=== PATIENT | male | born 1980 | race Hispanic/Latino ===

== ENCOUNTER 2017-12-25 11:40 | Emergency (ER) | payer MEDICARE, OTHER ==
[~2017-12-25] VITALS: Ht 175.3 cm; Wt 81.6 kg
[~2017-12-25 11:40] MED LIST: CRESTOR5 MG PO; ECOTRIN325 MG PO; JANUVIA100 MG PO; METFORMIN HCL500 MG PO; PEPCID40 MG PO; ULTRAM50 MG PO; VASOTEC5 MG PO
[2017-12-25] MEDS ORDERED: HYDROCODONE/APAP 5MG-325MG TAB PO ONE (12:15)
--- NOTE | 2017-12-25 12:26 | Diagnostic Imaging Report ---
Exam: Left ankle, 2 views, left foot, 2 views History: Fall, ankle pain Comparison: None. Findings: Ankle: No acute, displaced fracture or dislocation. The ankle mortise is maintained. Tibial plafond and talar dome are intact. Soft tissues are unremarkable. Foot: Acute, comminuted transverse intra-articular fracture of the base of the first metatarsal. Acute, minimally displaced transverse fractures of the proximal second and third metatarsals, without definite intra-articular extension. Acute nondisplaced oblique fracture of the base of the fourth metatarsal with intra-articular extension. Appropriate alignment between the medial cuneiform and second metatarsal base in keeping with an intact Lisfranc ligament. Remaining osseous structures are intact. Diffuse soft tissue swelling of the midfoot. Impression: Acute, comminuted intra-articular fracture of the first metatarsal base. Minimally displaced fractures of the second through fourth metatarsal bases, with hairline intra-articular extension of the fourth metatarsal fracture. No findings to suggest Lisfranc ligamentous disruption. Signed by: Dr. Jose Frances M.D. on 12/25/2017 12:22 PM
[2017-12-25 13:34] VITALS: BP 100/70
== END 2017-12-25 12:35 | disposition home or self-care (01) ==
LOC: FSED 11:40
DX: S92.315A Nondisplaced fracture of first metatarsal bone, left foot, initial encounter for closed fracture (principal); S92.325A Nondisplaced fracture of second metatarsal bone, left foot, initial encounter for closed fracture; S92.335A Nondisplaced fracture of third metatarsal bone, left foot, initial encounter for closed fracture; S90.112A Contusion of left great toe without damage to nail, initial encounter; S90.122A Contusion of left lesser toe(s) without damage to nail, initial encounter; W18.39XA Other fall on same level, initial encounter; X50.1XXA Overexertion from prolonged static or awkward postures, initial encounter; Y92.008 Other place in unspecified non-institutional (private) residence as the place of occurrence of the external cause
CPT/HCPCS: 99284

== ENCOUNTER 2019-05-24 09:17 | Inpatient (IN) | payer MEDICARE ==
[~2019-05-24] VITALS: Ht 175.3 cm; Wt 84.0 kg
[2019-05-24] MEDS ORDERED: SODIUM CHLORIDE 0.9% 1000ML 1,000 ML IV STA ×2 (09:38→09:43)
[2019-05-24 10:15] LABS: BASOPHILS % 0.1 % (0.0-1.0); EOSINOPHILS % 0.3 % (0.0-6.0); HEMATOCRIT 42.3 % (38.2-49.6); HEMOGLOBIN 13.6 g/dL (14.0-18.0); LYMPHOCYTES % 14.7 % (18.0-39.1); MEAN CORPUSCULAR HEMOGLOBIN 29.7 pg (28-32); MEAN CORPUSCULAR HGB CONC 32.2 g/dL (31-35); MEAN CORPUSCULAR VOLUME 92.4 fL (81-99); MONOCYTES % 7.6 % (4.4-11.3); NEUTROPHILS # (AUTO) 10.6 (2.1-6.9); NEUTROPHILS % 76.9 % (38.7-80.0); PLATELET COUNT 266 x10e3/uL (140-360); RED BLOOD COUNT 4.58 x10e6/uL (4.3-5.7); RED CELL DISTRIBUTION WIDTH 12.5 % (11.7-14.4)
[2019-05-24 10:29] LABS: STREPTOCOCCUS GRP A ANTIGEN NEGATIVE (NEGATIVE)
[2019-05-24 10:35] LABS: INFLUENZAE A&B ANTIGEN (RAPID) NEGATIVE (NEGATIVE)
[2019-05-24 10:37] LABS: ALBUMIN/GLOBULIN RATIO 0.7 (0.8-2.0); ANION GAP 12.8 mmol/L (8-16); CALCIUM 9.6 mg/dL (8.4-10.2); CREATININE, SERUM 1.73 mg/dL (0.72-1.25); MAGNESIUM 1.9 MG/DL (1.3-2.1); POTASSIUM 3.8 mmol/L (3.5-5.1)
--- NOTE | 2019-05-24 10:38 | Diagnostic Imaging Report ---
Chest, 1 view, 05/24/2019. History: Cough and fever. Comparison: None available. Findings: The cardiomediastinal silhouette and pulmonary vasculature are within normal limits for a portable exam. There is no focal consolidation or pleural effusion. Linear opacities are present at the lung bases. There are no acute osseous or soft tissue abnormalities. Impression: Bibasilar atelectasis. Signed by: Cuauhtemoc Bullock on 05/24/2019 10:35 AM
[2019-05-24 10:39] LABS: INR 1.01; PROTHROMBIN TIME 13.9 seconds (11.9-14.5)
[2019-05-24 10:40] LABS: PARTIAL THROMBOPLASTIN TIME 26.2 seconds (23.8-35.5)
[2019-05-24] MEDS: CEFEPIME 2 GM/NS 0.9% 100 ML 100 ML IV SCH ×2 (10:57→22:46)
[2019-05-24] MEDS ORDERED: VANCOMYCIN 1GM/NS 250 ML 250 ML IV ONE (11:00)
[2019-05-24 11:30] LABS: CREATINE KINASE MB 1.3 ng/mL (0-5.0)
[2019-05-24] MEDS ORDERED: SODIUM CHLORIDE 0.9% 500ML 500 ML IV ONE (11:30)
[2019-05-24 11:32] LABS: B-TYPE NATRIURETIC PEPTIDE2 110.1 pg/mL (0-100)
--- NOTE | 2019-05-24 11:35 | Diagnostic Imaging Report ---
History: Fever, low blood pressure, headache Comparison studies: None Technique: Axial images were obtained from the skull base to the vertex. Coronal and sagittal reconstructions obtained from the axial data. Dose modulation, iterative reconstruction, and/or weight based adjustment of the mA/kV was utilized to reduce the radiation dose to as low as reasonably achievable. Findings: Scalp/skull: No abnormalities. No fractures, blastic or lytic lesions. Extra-axial spaces: No masses. No fluid collections. Brain sulci: Mildly prominent, more than expected for patient's patient age. Ventricles: Mildly prominent. No hydrocephalus. Parenchyma: No abnormal densities. No masses, hemorrhage, acute or chronic cortical vascular insults. Sellar/suprasellar region: No abnormalities Craniocervical junction: Patent foramen magnum. No Chiari one malformation. IMPRESSION: No acute abnormalities . Mld diffuse volume loss, more than expected for patient's age Signed by: DR Johnson Nazario M.D. on 05/24/2019 11:32 AM
[2019-05-24] MEDS: AZITHROMYCIN 500MG/NS 250 ML 250 ML IV SCH (12:15)
[2019-05-24] MEDS ORDERED: DEXTROSE 50% SYRINGE 50 ML IV PRN (13:00)
[2019-05-24] MEDS ORDERED: ALBUTEROL SULF 0.083% NEB SOLN 3 ML NEB NEB PRN (13:00)
--- OUTSIDE RECORDS SUMMARY | 2019-05-24 13:34 | XMS REPORT ---
Author Author [facility] Address Unknown Phone Unavailable Care Team Providers Care Criminal Defense Lawyer Name Role Phone Julissa ENGEL Unavailable Unavailable Jaxson VEE Unavailable Unavailable Problems This patient has no known problems. Allergies, Adverse Reactions, Alerts This patient has no known allergies or adverse reactions. Medications This patient has no known medications. Results Test Description Test Time Test Comments Text Results Atomic Results Result Comments CT BRAIN WO 2019-05-24 11:22:00 [place] [address] Patient Name: MARGARITO ALFONSO MR #: [id number] : 1980 Age/Sex: 39/M Req #: [id number] Adm Physician: Ordered by: BALBIR CAROLINA SOAP DRIER OPERATOR Report #: [id number] Location: ER Room/Bed: Procedure: [id number] CT/CT BRAIN WO Exam Date: 05/24/19 Exam Time: 1030 REPORT STATUS: Signed History: Fever, low blood pressure, headache Comparison studies: None Technique: Axial images were obtained from the skull base to the vertex. Coronal and sagittal reconstructions obtained from the axial data. Dose modulation, iterative reconstruction, and/or weight based adjustment of the mA/kV was utilized to reduce the radiation dose to as low as reasonably achievable. Findings: Scalp/skull: No abnormalities. No fractures, blastic or lytic lesions. Extra-axial spaces: No masses. No fluid collections. Brain sulci: Mildly prominent, more than expected for patient's patient age. Ventricles: Mildly prominent. No hydrocephalus. Parenchyma: No abnormal densities. No masses, hemorrhage, acute or chronic cortical vascular insults. Sellar/suprasellar region: No abnormalities Craniocervical junction: Patent foramen magnum. No Chiari one malformation. IMPRESSION: No acute abnormalities . Mld diffuse volume loss, more than expected for patient's age Signed by: DR Johnson Nazario M.D. on 05/24/2019 11:32 AM Dictated By: JOHNSON SPRING MD 113 Transcribed By: SHEMAR on 05/24/19 113 COPY TO: BALBIR CAROLINA NP CHEST SINGLE (PORTABLE) 2019-05-24 10:35:00 [place] [address] Patient Name: MARGARITO ALFONSO MR #: [id number] : 1980 Age/Sex: 39/M Req #: [id number] Adm Physician: Ordered by: ROXANE ENGEL MD Report #: [id number] Location: ER Room/Bed: Procedure: [id number] DX/CHEST SINGLE (PORTABLE) Exam Date: Exam Time: REPORT STATUS: Signed Chest, 1 view, 05/24/2019. History: Cough and fever. Comparison: None available. Findings: The cardiomediastinal silhouette and pulmonary vasculature are within normal limits for a portable exam. There is no focal consolidation or pleural effusion. Linear opacities are present at the lung bases. There are no acute osseous or soft tissue abnormalities. Impression: Bibasilar atelectasis. Signed by: Balbir Bullock on 05/24/2019 10:35 AM Dictated By: BALBIR BULLOCK MD 1035 Transcribed By: SHEMAR on 05/24/19 1035 COPY TO: ROXANE ENGEL MD FOOT 3 VIEW LT - [facility] 2017-12-25 12:18:00 [place] [address] Patient Name: MARGARITO ALFONSO MR #: [id number] : 1980 Age/Sex: 37/M Req #: [id number] Adm Physician: Ordered by: ERNESTO VEE MD Report #: [id number] Location: [facility] Room/Bed: Procedure: [id number] [facility]/FOOT 3 VIEW - [facility] Exam Date: 12/25/17 Exam Time: 1150 REPORT STATUS: Signed Exam: Left ankle, 2 views, left foot, 2 views History: Fall, ankle pain Comparison: None. Findings: Ankle: No acute, displaced fracture or dislocation. The ankle mortise is maintained. Tibial plafond and talar dome are intact. Soft tissues are unremarkable. Foot: Acute, comminuted transverse intra-articular fracture of the base of the first metatarsal. Acute, minimally displaced transverse fractures of the proximal second and third metatarsals, without definite intra-articular extension. Acute nondisplaced oblique fracture of the base of the fourth metatarsal with intra-articular extension. Appropriate alignment between the medial cuneiform and second metatarsal base in keeping with an intact Lisfranc ligament. Remaining osseous structures are intact. Diffuse soft tissue swelling of the midfoot. Impression: Acute, comminuted intra-articular fracture of the first metatarsal base. Minimally displaced fractures of the second through fourth metatarsal bases, with hairline intra-articular extension of the fourth metatarsal fracture. No findings to suggest Lisfranc ligamentous disruption. Signed by: Dr. Thiago Bee M.D. on 12/25/2017 12:22 PM Dictated By: THIAGO BEE MD 1222 Transcribed By: SHEMAR on 12/25/17 1222 COPY TO: ERNESTO VEE MD ANKLE 3VIEW LT - [facility] 2017-12-25 12:18:00 [place] [address] Patient Name: MARGARITO ALFONSO MR #: [id number] : 1980 Age/Sex: 37/M Req #: [id number] Adm Physician: Ordered by: ERNESTO VEE MD Report #: [id number] Location: [facility] Room/Bed: Procedure: [id number] HOPD/ANKLE 3VIEW LT - [facility] Exam Date: 12/25/17 Exam Time: 1150 REPORT STATUS: Signed Exam: Left ankle, 2 views, left foot, 2 views History: Fall, ankle pain Comparison: None. Findings: Ankle: No acute, displaced fracture or dislocation. The ankle mortise is maintained. Tibial plafond and talar dome are intact. Soft tissues are unremarkable. Foot: Acute, comminuted transverse intra-articular fracture of the base of the first metatarsal. Acute, minimally displaced transverse fractures of the proximal second and third metatarsals, without definite intra-articular extension. Acute nondisplaced oblique fracture of the base of the fourth metatarsal with intra-articular extension. Appropriate alignment between the medial cuneiform and second metatarsal base in keeping with an intact Lisfranc ligament. Remaining osseous structures are intact. Diffuse soft tissue swelling of the midfoot. Impression: Acute, comminuted intra-articular fracture of the first metatarsal base. Minimally displaced fractures of the second through fourth metatarsal bases, with hairline intra-articular extension of the fourth metatarsal fracture. No findings to suggest Lisfranc ligamentous disruption. Signed by: Dr. Thiago Bee M.D. on 12/25/2017 12:22 PM Dictated By: THIAGO BEE MD 21 Transcribed By: SHEMAR on 12/25/171221 COPY TO: ERNESTO VEE MD
[2019-05-24 13:39] LABS: CLARITY,URINE CLEAR (CLEAR); COLOR,URINE YELLOW (YELLOW)
[2019-05-24 13:40] LABS: BILIRUBIN,URINE NEGATIVE (NEGATIVE); KETONES,URINE TRACE (NEGATIVE); LEUKOCYTE ESTERASE ,URINE NEGATIVE (NEGATIVE); NITRITE,URINE NEGATIVE (NEGATIVE); PROTEIN,URINE DIPSTICK NEGATIVE (NEGATIVE); URINE UROBILINOGEN 0.2 mg/dL (0.2 - 1)
[2019-05-24 13:48] LABS: EPITHELIAL CELLS,URINE FEW /LPF
[2019-05-24] MEDS: SODIUM CHLORIDE 0.9% 1000ML 1,000 ML IV SCH (14:14)
--- NOTE | 2019-05-24 14:56 | NUR ---
H&P cc: dizziness and cough/congestion HPI: 39yoM, PCP , developed cough and congestion with dizziness, went to PCP, treated and sent home, 2 days later symptoms persist, then drop in BP, sent to ER for mgmt; No fever; But coughing has increased. No travel in past 30 days, no travel this year outside of [place]. PMH: chronic cholecystitis, GERD, CAD, myotonic dystrophy, HLD, DM2, Myotonic dystrophy PHSx: [facility]ergies; see emr Fh/SH; single; no cigs meds; see MAR ROS: unobtainable v/s revd PE tired appearing anicteric ns1s2 coarse breath sounds; coughing with deep inspiration soft nt nd no e/t skin dry flat affect awake labs/meds revd A/P: Sepsis- IV abx Acute bronchitis- obtain respiratory viral panel COSTA due to ATN- IVF Myotonic dystrophy- PT consult; DM2- hba1c/lipids HLD- statin Prop: scd; lovenox Dispo: f/u studies Raman Biggs MD, PhD.
[2019-05-24 15:35] VITALS: BP 114/82
--- NOTE | 2019-05-24 15:35 | NUR ---
PATIENT RECEIVED FROM ER PER STRETCHER. ALERT AND ORIENTED X 3. ASSISTED TO THE RESTROOM AND BACK TO BED. SKIN WARM AND DRY TO TOUCH, RESPIRATION EVEN AND UNLABORED, ABDOMEN SOFT, LARGE, AND NON TENDED. TELEMETRY B[address] ORIENTED TO SURROUNDING. BED IN LOWER POSITION, CALL LIGHT AT REACH. INSTRUCTED TO CALL FOR ASSISTANCE NEEDED.
[2019-05-24 16:00] VITALS: BP 114/82
[2019-05-24 16:10] LABS: CHOL/HDL RATIO 3.6 (3.9-4.7)
[2019-05-24] MEDS: INSULIN LISPRO 100 UNIT/1 ML 3ML VIAL SQ SCH ×2 (16:30→21:40)
[2019-05-24 17:28] LABS: CREATINE KINASE MB 1.8 ng/mL (0-5.0)
--- NOTE | 2019-05-24 19:00 | NUR ---
RECEIVED PATIENT IN BEDSIDE SHIFT REPORT. PATIENT RESTING IN BED AT THIS TIME. NO PAIN OR COUGHING NOTED AT THIS TIME. NO S&S OF DISTRESS NOTED. L AV 18G ASYMPTOMATIC, INTACT, AND PATENT, RUNNING NS @ 125 ML/HR. FAMILY MEMBERS AT BEDSIDE. BED LOCKED IN LOWEST POSITION, SIDE RAILS UPX2, CALL LIGHT IN REACH.
[2019-05-24 20:23] VITALS: BP 106/72
[2019-05-24 20:30] VITALS: BP 106/72
[2019-05-24] MEDS: GUAIFENESIN/DEXTROMETHORPHAN LIQD 5 ML UDC PO SCH (21:39)
[2019-05-25] VITALS (8 sets, daily range): BP systolic 104–116; BP diastolic 62–77
[2019-05-25] MEDS: SODIUM CHLORIDE 0.9% 1000ML 1,000 ML IV SCH ×3 (01:19→20:46)
[2019-05-25] MEDS: GUAIFENESIN/DEXTROMETHORPHAN LIQD 5 ML UDC PO SCH ×3 (06:12→22:46)
--- NOTE | 2019-05-25 07:25 | NUR ---
PATIENT IN BED RESTING WITH EYES CLOSED, NO DISTRESS NOTED. CALL LIGHT AT REACH.
[2019-05-25] MEDS: INSULIN LISPRO 100 UNIT/1 ML 3ML VIAL SQ SCH ×4 (07:30→21:00)
[2019-05-25 07:43] LABS: BASOPHILS % 0.4 % (0.0-1.0); EOSINOPHILS # (AUTO) 0.1 (0.0-0.4); EOSINOPHILS % 1.7 % (0.0-6.0); HEMATOCRIT 37.7 % (38.2-49.6); HEMOGLOBIN 11.9 g/dL (14.0-18.0); LYMPHOCYTES # (AUTO) 1.7 (1.0-3.2); LYMPHOCYTES % 24.2 % (18.0-39.1); MEAN CORPUSCULAR HEMOGLOBIN 29.2 pg (28-32); MEAN CORPUSCULAR HGB CONC 31.6 g/dL (31-35); MEAN CORPUSCULAR VOLUME 92.4 fL (81-99); MONOCYTES # (AUTO) 0.5 (0.2-0.8); NEUTROPHILS # (AUTO) 4.8 (2.1-6.9); NEUTROPHILS % 66.3 % (38.7-80.0); PLATELET COUNT 207 x10e3/uL (140-360); RED BLOOD COUNT 4.08 x10e6/uL (4.3-5.7); RED CELL DISTRIBUTION WIDTH 12.4 % (11.7-14.4)
[2019-05-25] MEDS: FAMOTIDINE 20 MG TAB PO SCH ×2 (08:00→17:08)
[2019-05-25 08:02] LABS: ALANINE AMINOTRANSFERASE 12 IU/L (0-55); ALBUMIN 2.4 g/dL (3.5-5.0); ALBUMIN/GLOBULIN RATIO 0.6 (0.8-2.0); ALKALINE PHOSPHATASE 64 IU/L (40-150); ANION GAP 9.1 mmol/L (8-16); BLOOD UREA NITROGEN 6 mg/dL (7-26); BUN/CREATININE RATIO 8 (6-25); CALCIUM 8.2 mg/dL (8.4-10.2); CARBON DIOXIDE 29 mmol/L (22-29); CHLORIDE 107 mmol/L (98-107); CREATININE, SERUM 0.73 mg/dL (0.72-1.25); EST GLOMERULAR FILTRATION RATE > 60 ML/MIN (60-); GLUCOSE 239 mg/dL (74-118); POTASSIUM 4.1 mmol/L (3.5-5.1); SODIUM 141 mmol/L (136-145)
[2019-05-25 08:22] LABS: CREATINE KINASE MB 1.4 ng/mL (0-5.0)
[2019-05-25] MEDS: LORATADINE 10 MG TAB PO SCH (09:31)
[2019-05-25] MEDS ORDERED: ACETAMINOPHEN 325 MG TAB PO PRN (10:30)
[2019-05-25] MEDS: CEFEPIME 2 GM/NS 0.9% 100 ML 100 ML IV SCH ×2 (10:45→22:46)
--- NOTE | 2019-05-25 11:27 | NUR ---
PATIENT C/O HEADACHE. MD NOTIFIED, NEW ORDER RECEIVED AND IMPLEMENTED. NO MORE C/O HEADACHE.
--- NOTE | 2019-05-25 12:03 | NUR ---
IM- progress note O/N see below ROS: unobtainable v/s revd PE tired appearing anicteric ns1s2 coarse breath sounds; coughing with deep inspiration soft nt nd no e/t skin dry flat affect awake labs/meds revd A/P: Sepsis- IV abx Acute bronchitis- obtain respiratory viral panel COSTA due to ATN- IVF Myotonic dystrophy- PT consult; DM2- hba1c/lipids HLD- statin Prop: scd; lovenox Dispo: f/u studies 05/24 Hba1c/LDL 10.9/39; Leukocytosis resolving and COSTA resolving Raman Biggs MD, PhD.
[2019-05-25] MEDS: AZITHROMYCIN 500MG/NS 250 ML 250 ML IV SCH (12:51)
[2019-05-25] MEDS: INSULIN GLARGINE 100 UNITS/ML VIAL SQ SCH (12:52)
--- NOTE | 2019-05-25 15:27 | NUR ---
PATIENT OUT OF BED TO RECLINER WATCHING TV, NO DISTRESS NOTED. CALL LIGHT AT REACH.
[2019-05-25 17:52] LABS: CREATINE KINASE MB 1.5 ng/mL (0-5.0)
--- NOTE | 2019-05-25 20:06 | NUR ---
RECEIVED PT IN BED AOX3 .RESPIRATIONS ARE EVEN AND UNLABORED .18G L AC 125CC/HR .CALL LIGHT WITH IN REACH .CONTINUE TO MONITOR
[2019-05-25] MEDS: SIMVASTATIN 20 MG TAB PO SCH (21:00)
[2019-05-26] VITALS (8 sets, daily range): BP systolic 101–116; BP diastolic 61–72
[2019-05-26] MEDS: SODIUM CHLORIDE 0.9% 1000ML 1,000 ML IV SCH ×2 (03:41→04:46)
[2019-05-26] MEDS: GUAIFENESIN/DEXTROMETHORPHAN LIQD 5 ML UDC PO SCH ×3 (05:35→22:10)
--- NOTE | 2019-05-26 07:06 | NUR ---
BEDSIDE REPORT GIVEN TO THE ONCOMING NURSE
--- NOTE | 2019-05-26 07:23 | NUR ---
PATIENT IN BED RESTING WITH EYES CLOSED, NO DISTRESS NOTED. IV FLUID INFUSING ORDERED. CALL LIGHT AT REACH.
[2019-05-26] MEDS: INSULIN LISPRO 100 UNIT/1 ML 3ML VIAL SQ SCH ×4 (07:30→21:00)
[2019-05-26] MEDS: FAMOTIDINE 20 MG TAB PO SCH ×2 (07:30→17:12)
[2019-05-26 08:08] LABS: ANION GAP 9.1 mmol/L (8-16); BLOOD UREA NITROGEN 5 mg/dL (7-26); BUN/CREATININE RATIO 8 (6-25); CALCIUM 8.4 mg/dL (8.4-10.2); CARBON DIOXIDE 27 mmol/L (22-29); CHLORIDE 109 mmol/L (98-107); CREATININE, SERUM 0.63 mg/dL (0.72-1.25); EST GLOMERULAR FILTRATION RATE > 60 ML/MIN (60-); GLUCOSE 170 mg/dL (74-118); POTASSIUM 4.1 mmol/L (3.5-5.1); SODIUM 141 mmol/L (136-145)
[2019-05-26] MEDS: LORATADINE 10 MG TAB PO SCH (09:10)
[2019-05-26] MEDS ORDERED: ONDANSETRON HCL INJ 2MG/ML 2ML 2 MG/ML VIAL IV PRN (09:15)
--- NOTE | 2019-05-26 09:29 | NUR ---
IM- progress note O/N see below ROS: unobtainable v/s revd PE tired appearing anicteric ns1s2 coarse breath sounds; coughing with deep inspiration soft nt nd no e/t skin dry flat affect awake labs/meds revd A/P: Sepsis- IV abx Acute bronchitis- obtain respiratory viral panel COSTA due to ATN- IVF Myotonic dystrophy- PT consult; DM2- hba1c/lipids HLD- statin Prop: scd; lovenox Dispo: f/u studies 05/24 Hba1c/LDL 10.9/39; Leukocytosis resolving and COSTA resolving 05/25 Treat nausea; f/u virus serology panel; Raman Biggs MD, PhD.
[2019-05-26] MEDS: INSULIN GLARGINE 100 UNITS/ML VIAL SQ SCH (09:32)
[2019-05-26] MEDS: CEFEPIME 2 GM/NS 0.9% 100 ML 100 ML IV SCH ×2 (10:45→22:21)
[2019-05-26] MEDS: AZITHROMYCIN 500MG/NS 250 ML 250 ML IV SCH (12:19)
--- NOTE | 2019-05-26 12:38 | NUR ---
Educated on IMM letter. Verbalized understanding and signed. Copy to transition folder at bedside, original placed in chart
--- NOTE | 2019-05-26 15:48 | NUR ---
PATIENT IN BED TALKING ON THE PHONE, CALL LIGHT AT REACH.
--- NOTE | 2019-05-26 20:04 | NUR ---
RECEIVED PT IN BED AOX3 .NO ACUTE DISTRESS NOTED .FAMILY AT THE BEDSIDE CALL LIGHT WITH IN REACH .CONTINUE TO MONITOR
[2019-05-26] MEDS: SIMVASTATIN 20 MG TAB PO SCH (22:10)
[2019-05-27] VITALS: BP 108/74
[2019-05-27 04:00] VITALS: BP 100/61
[2019-05-27] MEDS ORDERED: LORATADINE10 MG PO (05:52)
[2019-05-27] MEDS ORDERED: ZITHROMAX500 MG PO (05:52)
[2019-05-27] MEDS ORDERED: Guaifenesin/Dextromethorphan PO (05:52)
--- NOTE | 2019-05-27 05:54 | NUR ---
D/C Summary Principal Dx: Sepsis- IV abx Acute bronchitis- obtain respiratory viral panel COSTA due to ATN- IVF Secondary Dx: Myotonic dystrophy- PT consult; DM2- hba1c/lipids HLD- statin Prop: scd; lovenox Dispo: f/u studies 05/24 Hba1c/LDL 10.9/39; Leukocytosis resolving and COSTA resolving 05/25 Treat nausea; f/u virus serology panel; d/c home f/u pcp 1week stable d/c>35mins Raman Biggs MD, PhD.
[2019-05-27] MEDS: GUAIFENESIN/DEXTROMETHORPHAN LIQD 5 ML UDC PO SCH (06:00)
--- NOTE | 2019-05-27 06:38 | NUR ---
PT RESTED DURING THE NIGHT .DENIES PAIN .CALL LIGHT WITH IN REACH .CONTINUE TO MONITOR
--- NOTE | 2019-05-27 07:07 | NUR ---
PATIENT SITTING AT BED SIDE TALKING TO FAMILY MEMBER, NO COMPLAIN VOICED. BED IN LOWER POSITION, CALL LIGHT AT REACH.
--- NOTE | 2019-05-27 07:12 | NUR ---
BEDSIDE REPORT GIVEN TO THE ONCOMING NURSE
[2019-05-27] MEDS: INSULIN LISPRO 100 UNIT/1 ML 3ML VIAL SQ SCH (07:30)
[2019-05-27 07:43] VITALS: BP 99/72
[2019-05-27 07:47] VITALS: BP 99/72
[2019-05-27] MEDS: FAMOTIDINE 20 MG TAB PO SCH (07:54)
[2019-05-27] MEDS: LORATADINE 10 MG TAB PO SCH (08:11)
[2019-05-27] MEDS: INSULIN GLARGINE 100 UNITS/ML VIAL SQ SCH (08:15)
--- NOTE | 2019-05-27 08:46 | NUR ---
PATIENT DISCHARGED HOME. DISCHARGED INSTRUCTIONS, PRESCRIPTIONS, AND FOLLOW UP GIVEN TO PATIENT, HE VERBALIZED UNDERSTANDING. IV TO RIGHT LEFT AC REMOVED WITH TIP INTACT. ALL PERSONAL ITEMS TAKEN WITH PATIENT. LEFT UNIT PER WHEEL CHAIR TO FRONT LOBBY IN STABLE CONDITION.
== END 2019-05-27 08:42 | disposition home or self-care (01) | DRG 871 ==
LOC: ER 09:17 → ERHOLD 12:46 → MED/SURG3 15:27
PROVIDERS: ADMIT Internal Medicine; ATTEND Internal Medicine
DX: A41.9 Sepsis, unspecified organism (principal); N17.0 Acute kidney failure with tubular necrosis; J20.9 Acute bronchitis, unspecified; E11.9 Type 2 diabetes mellitus without complications; K21.9 Gastro-esophageal reflux disease without esophagitis; G71.11 Myotonic muscular dystrophy; E78.5 Hyperlipidemia, unspecified
CPT/HCPCS: 36415; 70450; 71045; 80048; 80053; 80061; 81001; 82550; 82553; 82948; 83036; 83518; 83605; 83735; 83880; 84484; 85025; 85610; 85730; 87040; 87070; 87086; 87299; 87400; 93005; 96372; 99285; J0456; J2405; J3370; J7030; J7040

== ENCOUNTER 2020-03-28 16:10 | Inpatient (IN) | payer MEDICARE ==
[~2020-03-28] VITALS: Ht 175.3 cm; Wt 80.7 kg
[~2020-03-28 16:10] MED LIST changes: +Guaifenesin/Dextromethorphan PO; +LORATADINE10 MG PO; +ZITHROMAX500 MG PO
[2020-03-28] MEDS ORDERED: TOUJEO SOL300 UNIT/1 (16:27)
[2020-03-28] MEDS ORDERED: BENICAR20 MG PO (16:27)
[2020-03-28] MEDS ORDERED: GABAPENTIN300 MG PO (16:27)
[2020-03-28] MEDS ORDERED: FAMOTIDINE 20 MG/2 ML VIAL IV ONE ×2 (16:30→16:47)
[2020-03-28] MEDS ORDERED: ONDANSETRON HCL INJ 2MG/ML 2ML 2 MG/ML VIAL IV ONE (16:30)
[2020-03-28] MEDS ORDERED: SODIUM CHLORIDE 0.9% 1000ML 1,000 ML IV STA ×2 (16:30)
[2020-03-28] MEDS ORDERED: SODIUM CHLORIDE 0.9% 1000ML 2,000 ML ONE (16:47)
[2020-03-28] MEDS ORDERED: INSULIN REGULAR, HUMAN 100 UNIT/1 ML 3ML VIAL IV ONE (17:00)
[2020-03-28] MEDS ORDERED: INSULIN REGULAR, HUMAN 100 UNIT/1 ML 3ML VIAL SQ NR (17:00)
[2020-03-28] MEDS ORDERED: ONDANSETRON HCL INJ 2MG/ML 2ML 2 MG/ML VIAL ONE (17:16)
[2020-03-28] MEDS ORDERED: INSULIN REGULAR, HUMAN 100 UNIT/1 ML 3ML VIAL ONE (17:17)
[2020-03-28] MEDS ORDERED: POTASSIUM CHLORIDE 20 MEQ TAB CR PO ONE (17:18)
[2020-03-28] MEDS ORDERED: ZOLPIDEM TARTRATE 5 MG TAB PO PRN (17:45)
[2020-03-28] MEDS ORDERED: DEXTROSE 50% SYRINGE 50 ML IV PRN (17:45)
[2020-03-28] MEDS ORDERED: DIPHENHYDRAMINE HCL INJ 50 MG/ML VIAL IV PRN (17:45)
[2020-03-28] MEDS ORDERED: ASPIRIN 81 MG CHEW TAB PO ONE (17:45)
[2020-03-28] MEDS ORDERED: ONDANSETRON HCL INJ 2MG/ML 2ML 2 MG/ML VIAL IV PRN (17:45)
[2020-03-28] MEDS ORDERED: POTASSIUM CHLORIDE 10MEQ EA PO ONE (18:15)
[2020-03-28] MEDS ORDERED: ASPIRIN 81 MG CHEW TAB ONE (18:21)
[2020-03-28] MEDS ORDERED: AZITHROMYCIN 500MG/NS 250 ML 250 ML ONE (18:21)
[2020-03-28] MEDS ORDERED: SODIUM CHLORIDE 0.9% 1000ML 1,000 ML ONE (18:21)
[2020-03-28] MEDS ORDERED: CEFTRIAXONE SOD 1 GM/NS 50 ML 50 ML IV ONE (18:21)
[2020-03-28] MEDS: CEFTRIAXONE SOD 1 GRAM/0.9% SOD CHL 50ML BAG IV SCH (18:25)
[2020-03-28] MEDS: SODIUM CHLORIDE 0.9% 1000ML 1,000 ML IV SCH ×2 (18:25→21:40)
[2020-03-28] MEDS: AZITHROMYCIN 500MG/SOD CHL 0.9% 250ML BAG IV SCH (18:25)
[2020-03-28] MEDS: ACETAMINOPHEN 325 MG TAB PO PRN (19:08)
[2020-03-28] MEDS ORDERED: ACETAMINOPHEN 325 MG TAB ONE (19:09)
[2020-03-28 21:00] VITALS: BP 112/75
[2020-03-28] MEDS: INSULIN REGULAR, HUMAN 100 UNIT/1 ML 3ML VIAL SQ SCH (21:00)
[2020-03-28 21:23] VITALS: BP 112/75
[2020-03-28] MEDS ORDERED: PNEUMOCOCCAL VACCINE POLYVALENT 23 MCG/0.5 ML VIAL IM SCH (23:11)
[2020-03-29] VITALS (9 sets, daily range): BP systolic 99–115; BP diastolic 63–77
[2020-03-29 02:16] LABS: CREATINE KINASE MB 0.9 ng/mL (0-5.0)
[2020-03-29] MEDS: ACETAMINOPHEN 325 MG TAB PO PRN ×2 (04:00→14:05)
[2020-03-29] MEDS: SODIUM CHLORIDE 0.9% 1000ML 1,000 ML IV SCH ×2 (05:39→14:05)
[2020-03-29] MEDS: INSULIN REGULAR, HUMAN 100 UNIT/1 ML 3ML VIAL SQ SCH ×4 (07:30→20:50)
[2020-03-29] MEDS: TRAMADOL HCL 50 MG TAB PO PRN ×2 (08:59→20:50)
[2020-03-29] MEDS ORDERED: DOCUSATE SODIUM 100 MG CAP PO PRN (09:45)
[2020-03-29] MEDS ORDERED: GUAIFENESIN/DEXTROMETHORPHAN LIQD 5 ML UDC NG PRN (09:45)
[2020-03-29 10:31] LABS: BASOPHILS % 0.2 % (0.0-1.0); HEMATOCRIT 32.4 % (38.2-49.6); HEMOGLOBIN 10.1 g/dL (14.0-18.0); LYMPHOCYTES # (AUTO) 1.1 (1.0-3.2); LYMPHOCYTES % 17.8 % (18.0-39.1); MEAN CORPUSCULAR HEMOGLOBIN 27.6 pg (28-32); MEAN CORPUSCULAR HGB CONC 31.2 g/dL (31-35); MEAN CORPUSCULAR VOLUME 88.5 fL (81-99); MONOCYTES # (AUTO) 0.2 (0.2-0.8); MONOCYTES % 3.1 % (4.4-11.3); NEUTROPHILS # (AUTO) 4.9 (2.1-6.9); NEUTROPHILS % 78.6 % (38.7-80.0); PLATELET COUNT 129 x10e3/uL (140-360); RED BLOOD COUNT 3.66 x10e6/uL (4.3-5.7); RED CELL DISTRIBUTION WIDTH 13.2 % (11.7-14.4)
[2020-03-29] MEDS: BENZONATATE 100 MG CAP PO SCH ×3 (10:52→20:50)
[2020-03-29] MEDS: FAMOTIDINE 20 MG TAB PO SCH ×2 (10:52→16:16)
[2020-03-29] MEDS: INSULIN GLARGINE 100 UNITS/ML VIAL SC SCH (10:56)
[2020-03-29 11:07] LABS: ANION GAP 9.8 mmol/L (8-16); BLOOD UREA NITROGEN < 5 mg/dL (7-26); CALCIUM 7.4 mg/dL (8.4-10.2); CARBON DIOXIDE 27 mmol/L (22-29); CHLORIDE 108 mmol/L (98-107); CREATININE, SERUM 0.69 mg/dL (0.72-1.25); EST GLOMERULAR FILTRATION RATE > 60 ML/MIN (60-); GLUCOSE 127 mg/dL (74-118); POTASSIUM 3.8 mmol/L (3.5-5.1); SODIUM 141 mmol/L (136-145)
[2020-03-29 11:14] LABS: BUN/CREATININE RATIO 7 (6-25)
[2020-03-29 11:33] LABS: CREATINE KINASE MB 1.1 ng/mL (0-5.0)
[2020-03-29 11:46] LABS: CHOL/HDL RATIO 3.4 (3.9-4.7)
[2020-03-29] MEDS: GABAPENTIN 300 MG CAP PO SCH ×2 (16:15→20:50)
[2020-03-29] MEDS: ENOXAPARIN SOD INJ 40 MG/0.4 ML SYR SC SCH (16:16)
[2020-03-29] MEDS: CEFTRIAXONE SOD 1 GRAM/0.9% SOD CHL 50ML BAG IV SCH (16:16)
[2020-03-29] MEDS: AZITHROMYCIN 500MG/SOD CHL 0.9% 250ML BAG IV SCH (18:30)
[2020-03-29] MEDS: DEXAMETHASONE SOD PHOS 10 MG/1 ML VIAL IV SCH (20:50)
[2020-03-29] MEDS ORDERED: ZOLPIDEM TARTRATE 5 MG TAB PO PRN (21:00)
[2020-03-30] VITALS (8 sets, daily range): BP systolic 110–136; BP diastolic 70–94
[2020-03-30] MEDS: SODIUM CHLORIDE 0.9% 1000ML 1,000 ML IV SCH ×3 (00:46→16:23)
[2020-03-30 05:02] LABS: HEMATOCRIT 35.1 % (38.2-49.6); LYMPHOCYTES # (AUTO) 0.6 (1.0-3.2); LYMPHOCYTES % 15.9 % (18.0-39.1); MEAN CORPUSCULAR HGB CONC 31.3 g/dL (31-35); MEAN CORPUSCULAR VOLUME 89.3 fL (81-99); MONOCYTES # (AUTO) 0.1 (0.2-0.8); MONOCYTES % 2.2 % (4.4-11.3); NEUTROPHILS % 81.6 % (38.7-80.0); PLATELET COUNT 163 x10e3/uL (140-360); RED BLOOD COUNT 3.93 x10e6/uL (4.3-5.7); RED CELL DISTRIBUTION WIDTH 13.3 % (11.7-14.4)
[2020-03-30 05:29] LABS: ANION GAP 14.4 mmol/L (8-16); BLOOD UREA NITROGEN 5 mg/dL (7-26); BUN/CREATININE RATIO 8 (6-25); CALCIUM 7.4 mg/dL (8.4-10.2); CARBON DIOXIDE 25 mmol/L (22-29); CHLORIDE 104 mmol/L (98-107); EST GLOMERULAR FILTRATION RATE > 60 ML/MIN (60-); GLUCOSE 162 mg/dL (74-118); MAGNESIUM 1.4 MG/DL (1.3-2.1); POTASSIUM 4.4 mmol/L (3.5-5.1); SODIUM 139 mmol/L (136-145)
[2020-03-30] MEDS: SIMVASTATIN 20 MG TAB PO SCH (08:36)
[2020-03-30] MEDS: ZINC SULFATE 220 MG CAP PO SCH (08:36)
[2020-03-30] MEDS: LORATADINE 10 MG TAB PO SCH (08:36)
[2020-03-30] MEDS: FAMOTIDINE 20 MG TAB PO SCH ×2 (08:36→16:23)
[2020-03-30] MEDS: GABAPENTIN 300 MG CAP PO SCH ×3 (08:36→21:15)
[2020-03-30] MEDS: ASCORBIC ACID 500 MG TAB PO SCH ×2 (08:36→16:23)
[2020-03-30] MEDS: BENZONATATE 100 MG CAP PO SCH ×3 (08:36→21:15)
[2020-03-30] MEDS: INSULIN GLARGINE 100 UNITS/ML VIAL SC SCH (08:59)
[2020-03-30] MEDS: INSULIN REGULAR, HUMAN 100 UNIT/1 ML 3ML VIAL SQ SCH ×4 (09:00→21:15)
[2020-03-30] MEDS ORDERED: ONDANSETRON HCL 4 MG ORAL DISINTEGRATING TAB PO PRN (12:45)
[2020-03-30] MEDS ORDERED: REMDESIVIR 200MG/NS 100ML 200 MG in SODIUM CHLORIDE 0.9% 100 ML 100 ML IV ONE (15:00)
[2020-03-30] MEDS: TRAMADOL HCL 50 MG TAB PO PRN ×2 (15:13→21:15)
[2020-03-30] MEDS: CEFTRIAXONE SOD 1 GRAM/0.9% SOD CHL 50ML BAG IV SCH (16:23)
[2020-03-30] MEDS: ENOXAPARIN SOD INJ 40 MG/0.4 ML SYR SC SCH (16:23)
[2020-03-30] MEDS: AZITHROMYCIN 500MG/SOD CHL 0.9% 250ML BAG IV SCH (17:30)
[2020-03-30] MEDS: DEXAMETHASONE SOD PHOS 10 MG/1 ML VIAL IV SCH (21:15)
[2020-03-31] VITALS (8 sets, daily range): BP systolic 106–123; BP diastolic 63–83
[2020-03-31] MEDS: SODIUM CHLORIDE 0.9% 1000ML 1,000 ML IV SCH ×3 (03:50→17:00)
[2020-03-31 06:25] LABS: BASOPHILS % 0.4 % (0.0-1.0); HEMATOCRIT 35.1 % (38.2-49.6); HEMOGLOBIN 10.7 g/dL (14.0-18.0); LYMPHOCYTES # (AUTO) 0.6 (1.0-3.2); LYMPHOCYTES % 22.8 % (18.0-39.1); MEAN CORPUSCULAR HEMOGLOBIN 27.1 pg (28-32); MEAN CORPUSCULAR HGB CONC 30.5 g/dL (31-35); MEAN CORPUSCULAR VOLUME 88.9 fL (81-99); MONOCYTES # (AUTO) 0.1 (0.2-0.8); MONOCYTES % 2.6 % (4.4-11.3); NEUTROPHILS % 73.5 % (38.7-80.0); PLATELET COUNT 212 x10e3/uL (140-360); RED BLOOD COUNT 3.95 x10e6/uL (4.3-5.7); RED CELL DISTRIBUTION WIDTH 13.3 % (11.7-14.4)
[2020-03-31 06:54] LABS: ANION GAP 12.1 mmol/L (8-16); BLOOD UREA NITROGEN 7 mg/dL (7-26); BUN/CREATININE RATIO 12 (6-25); CALCIUM 7.4 mg/dL (8.4-10.2); CARBON DIOXIDE 28 mmol/L (22-29); CHLORIDE 104 mmol/L (98-107); CREATININE, SERUM 0.59 mg/dL (0.72-1.25); EST GLOMERULAR FILTRATION RATE > 60 ML/MIN (60-); GLUCOSE 180 mg/dL (74-118); MAGNESIUM 1.5 MG/DL (1.3-2.1); POTASSIUM 4.1 mmol/L (3.5-5.1); SODIUM 140 mmol/L (136-145)
[2020-03-31] MEDS: INSULIN GLARGINE 100 UNITS/ML VIAL SC SCH (08:00)
[2020-03-31] MEDS: INSULIN REGULAR, HUMAN 100 UNIT/1 ML 3ML VIAL SQ SCH ×4 (08:00→21:40)
[2020-03-31] MEDS: BENZONATATE 100 MG CAP PO SCH ×3 (08:48→21:40)
[2020-03-31] MEDS: SIMVASTATIN 20 MG TAB PO SCH (08:48)
[2020-03-31] MEDS: ASCORBIC ACID 500 MG TAB PO SCH ×2 (08:48→16:20)
[2020-03-31] MEDS: FAMOTIDINE 20 MG TAB PO SCH ×2 (08:48→16:20)
[2020-03-31] MEDS: LORATADINE 10 MG TAB PO SCH (08:48)
[2020-03-31] MEDS: GABAPENTIN 300 MG CAP PO SCH ×3 (08:48→21:40)
[2020-03-31] MEDS: ZINC SULFATE 220 MG CAP PO SCH (08:48)
[2020-03-31] MEDS: REMDESIVIR 100MG/NS 100ML 100 MG in SODIUM CHLORIDE 0.9% 100 ML 100 ML IV SCH (14:36)
[2020-03-31] MEDS: CEFTRIAXONE SOD 1 GRAM/0.9% SOD CHL 50ML BAG IV SCH (16:20)
[2020-03-31] MEDS: ENOXAPARIN SOD INJ 40 MG/0.4 ML SYR SC SCH (16:20)
[2020-03-31] MEDS: AZITHROMYCIN 500MG/SOD CHL 0.9% 250ML BAG IV SCH (18:00)
[2020-03-31] MEDS: DEXAMETHASONE SOD PHOS 10 MG/1 ML VIAL IV SCH (21:40)
[2020-03-31] MEDS: TRAMADOL HCL 50 MG TAB PO PRN (21:50)
[2020-04-01] VITALS (10 sets, daily range): BP systolic 110–128; BP diastolic 69–84
[2020-04-01] MEDS: SODIUM CHLORIDE 0.9% 1000ML 1,000 ML IV SCH ×3 (00:18→18:27)
[2020-04-01] MEDS: INSULIN GLARGINE 100 UNITS/ML VIAL SC SCH (09:00)
[2020-04-01] MEDS: ZINC SULFATE 220 MG CAP PO SCH (09:34)
[2020-04-01] MEDS: BENZONATATE 100 MG CAP PO SCH ×3 (09:34→20:54)
[2020-04-01] MEDS: GABAPENTIN 300 MG CAP PO SCH ×3 (09:34→20:54)
[2020-04-01] MEDS: SIMVASTATIN 20 MG TAB PO SCH (09:34)
[2020-04-01] MEDS: LORATADINE 10 MG TAB PO SCH (09:34)
[2020-04-01] MEDS: ASCORBIC ACID 500 MG TAB PO SCH ×2 (09:34→16:02)
[2020-04-01] MEDS: FAMOTIDINE 20 MG TAB PO SCH ×2 (09:34→16:02)
[2020-04-01] MEDS: INSULIN REGULAR, HUMAN 100 UNIT/1 ML 3ML VIAL SQ SCH ×4 (09:45→20:55)
[2020-04-01] MEDS: REMDESIVIR 100MG/NS 100ML 100 MG in SODIUM CHLORIDE 0.9% 100 ML 100 ML IV SCH (14:21)
[2020-04-01] MEDS: ENOXAPARIN SOD INJ 40 MG/0.4 ML SYR SC SCH (16:02)
[2020-04-01] MEDS: CEFTRIAXONE SOD 1 GRAM/0.9% SOD CHL 50ML BAG IV SCH (16:54)
[2020-04-01] MEDS: AZITHROMYCIN 500MG/SOD CHL 0.9% 250ML BAG IV SCH (18:27)
[2020-04-01] MEDS: DEXAMETHASONE SOD PHOS 10 MG/1 ML VIAL IV SCH (20:54)
[2020-04-02] VITALS (7 sets, daily range): BP systolic 114–124; BP diastolic 71–89
[2020-04-02] MEDS: SODIUM CHLORIDE 0.9% 1000ML 1,000 ML IV SCH ×4 (02:20→23:39)
[2020-04-02] MEDS: INSULIN REGULAR, HUMAN 100 UNIT/1 ML 3ML VIAL SQ SCH ×4 (07:30→20:31)
[2020-04-02 07:38] LABS: HEMATOCRIT 38.7 % (38.2-49.6); HEMOGLOBIN 12.2 g/dL (14.0-18.0); LYMPHOCYTES # (AUTO) 0.6 (1.0-3.2); LYMPHOCYTES % 19.4 % (18.0-39.1); MEAN CORPUSCULAR HEMOGLOBIN 27.5 pg (28-32); MEAN CORPUSCULAR HGB CONC 31.5 g/dL (31-35); MEAN CORPUSCULAR VOLUME 87.2 fL (81-99); MONOCYTES # (AUTO) 0.2 (0.2-0.8); NEUTROPHILS # (AUTO) 2.4 (2.1-6.9); PLATELET COUNT 303 x10e3/uL (140-360); RED BLOOD COUNT 4.44 x10e6/uL (4.3-5.7); RED CELL DISTRIBUTION WIDTH 13.4 % (11.7-14.4)
[2020-04-02 08:09] LABS: ANION GAP 10.9 mmol/L (8-16); BLOOD UREA NITROGEN 8 mg/dL (7-26); BUN/CREATININE RATIO 14 (6-25); CALCIUM 7.8 mg/dL (8.4-10.2); CARBON DIOXIDE 28 mmol/L (22-29); CHLORIDE 109 mmol/L (98-107); CREATININE, SERUM 0.58 mg/dL (0.72-1.25); EST GLOMERULAR FILTRATION RATE > 60 ML/MIN (60-); GLUCOSE 111 mg/dL (74-118); POTASSIUM 3.9 mmol/L (3.5-5.1); SODIUM 144 mmol/L (136-145)
[2020-04-02] MEDS: ASCORBIC ACID 500 MG TAB PO SCH ×2 (08:52→16:57)
[2020-04-02] MEDS: FAMOTIDINE 20 MG TAB PO SCH ×2 (08:52→16:05)
[2020-04-02] MEDS: ZINC SULFATE 220 MG CAP PO SCH (08:52)
[2020-04-02] MEDS: GABAPENTIN 300 MG CAP PO SCH ×3 (08:52→20:50)
[2020-04-02] MEDS: BENZONATATE 100 MG CAP PO SCH ×3 (08:52→20:50)
[2020-04-02] MEDS: LORATADINE 10 MG TAB PO SCH (08:52)
[2020-04-02] MEDS: SIMVASTATIN 20 MG TAB PO SCH (08:52)
[2020-04-02] MEDS: INSULIN GLARGINE 100 UNITS/ML VIAL SC SCH (08:53)
[2020-04-02] MEDS: REMDESIVIR 100MG/NS 100ML 100 MG in SODIUM CHLORIDE 0.9% 100 ML 100 ML IV SCH (14:51)
[2020-04-02] MEDS: ENOXAPARIN SOD INJ 40 MG/0.4 ML SYR SC SCH (16:57)
[2020-04-02] MEDS: CEFTRIAXONE SOD 1 GRAM/0.9% SOD CHL 50ML BAG IV SCH (16:57)
[2020-04-02] MEDS: AZITHROMYCIN 500MG/SOD CHL 0.9% 250ML BAG IV SCH (18:27)
[2020-04-02] MEDS: DEXAMETHASONE SOD PHOS 10 MG/1 ML VIAL IV SCH (20:50)
[2020-04-03] VITALS (9 sets, daily range): BP systolic 87–125; BP diastolic 62–84
[2020-04-03] MEDS: LORATADINE 10 MG TAB PO SCH (09:29)
[2020-04-03] MEDS: ZINC SULFATE 220 MG CAP PO SCH (09:29)
[2020-04-03] MEDS: FAMOTIDINE 20 MG TAB PO SCH ×2 (09:29→16:58)
[2020-04-03] MEDS: ASCORBIC ACID 500 MG TAB PO SCH ×2 (09:29→16:58)
[2020-04-03] MEDS: SIMVASTATIN 20 MG TAB PO SCH (09:29)
[2020-04-03] MEDS: GABAPENTIN 300 MG CAP PO SCH ×2 (09:29→15:20)
[2020-04-03] MEDS: BENZONATATE 100 MG CAP PO SCH ×2 (09:29→15:20)
[2020-04-03] MEDS: INSULIN GLARGINE 100 UNITS/ML VIAL SC SCH (09:31)
[2020-04-03] MEDS: INSULIN REGULAR, HUMAN 100 UNIT/1 ML 3ML VIAL SQ SCH ×3 (09:31→17:00)
[2020-04-03] MEDS: SODIUM CHLORIDE 0.9% 1000ML 1,000 ML IV SCH (10:07)
[2020-04-03] MEDS: REMDESIVIR 100MG/NS 100ML 100 MG in SODIUM CHLORIDE 0.9% 100 ML 100 ML IV SCH (14:14)
[2020-04-03] MEDS: CEFTRIAXONE SOD 1 GRAM/0.9% SOD CHL 50ML BAG IV SCH (16:58)
[2020-04-03] MEDS: ENOXAPARIN SOD INJ 40 MG/0.4 ML SYR SC SCH (16:58)
[2020-04-03] MEDS: AZITHROMYCIN 500MG/SOD CHL 0.9% 250ML BAG IV SCH (18:17)
[2020-04-03] MEDS ORDERED: PREDNISONE20 MG PO (18:56)
[2020-04-03] MEDS ORDERED: ZITHROMAX500 MG PO (18:56)
[2020-04-03] MEDS ORDERED: TESSALON PERLE100 MG PO (18:56)
[2020-04-03] MEDS ORDERED: ASCORBIC ACID500 MG PO (18:56)
[2020-04-03] MEDS ORDERED: ZINC SULFATE220 M1 PO (18:56)
== END 2020-04-03 20:52 | disposition home or self-care (01) | DRG 177 ==
LOC: FSED 16:30 → ERHOLD 17:42 → IMCU 21:00
PROVIDERS: ADMIT Internal Medicine; ATTEND Internal Medicine
PROC: 3E0333Z Introduction of Anti-inflammatory into Peripheral Vein, Percutaneous Approach (ICD-10-PCS; 2020-03-29)
PROC: XW033E5 Introduction of Remdesivir Anti-infective into Peripheral Vein, Percutaneous Approach, New Technology Group 5 (ICD-10-PCS; principal; 2020-03-31)
DX: U07.1 COVID-19 (principal); J12.82 Pneumonia due to coronavirus disease 2019; J96.91 Respiratory failure, unspecified with hypoxia; R63.1 Polydipsia; I10 Essential (primary) hypertension; E78.5 Hyperlipidemia, unspecified; Z90.49 Acquired absence of other specified parts of digestive tract; E11.65 Type 2 diabetes mellitus with hyperglycemia; E86.0 Dehydration; G71.11 Myotonic muscular dystrophy; Z79.4 Long term (current) use of insulin
CPT/HCPCS: 36415; 71045; 80048; 80053; 80061; 81003; 82550; 82553; 82948; 83036; 83735; 84484; 85025; 87040; 93005; 96372; 96374; 96375; 97139; 99284; J0456; J0696; J1100; J1650; J1815; J1817; J2405; J7030; U0002

== ENCOUNTER 2024-05-30 16:56 | Emergency (ER) | payer MEDICARE ==
[~2024-05-30] VITALS: Ht 175.3 cm; Wt 80.7 kg
[~2024-05-30 16:56] MED LIST changes: +ASCORBIC ACID500 MG PO; +BENICAR20 MG PO; +GABAPENTIN300 MG PO; +PREDNISONE20 MG PO; +TESSALON PERLE100 MG PO; +TOUJEO SOL300 UNIT/1; +ZINC SULFATE220 M1 PO
[2024-05-30 17:04] VITALS: PULSE 85; RESP 18; TEMP 97.9
[2024-05-30 18:16] LABS: BASOPHILS % 0.2 % (0.0-1.0); EOSINOPHILS % 0.7 % (0.0-6.0); HEMATOCRIT 46.5 % (38.2-49.6); HEMOGLOBIN 14.9 g/dL (14.0-18.0); LYMPHOCYTES # (AUTO) 1.4 (1.0-3.2); LYMPHOCYTES % 23.4 % (18.0-39.1); MEAN CORPUSCULAR HEMOGLOBIN 28.7 pg (28-32); MEAN CORPUSCULAR VOLUME 89.4 fL (81-99); MONOCYTES # (AUTO) 0.6 (0.2-0.8); MONOCYTES % 9.1 % (4.4-11.3); NEUTROPHILS % 66.1 % (38.7-80.0); PLATELET COUNT 234 x10e3/uL (140-360); RED CELL DISTRIBUTION WIDTH 12.3 % (11.7-14.4); WHITE BLOOD COUNT 6.07 x10e3/uL (4.8-10.8)
[2024-05-30 18:37] LABS: ALBUMIN/GLOBULIN RATIO 0.7 (0.8-2.0); ANION GAP 14.8 mmol/L (8-16); BILIRUBIN,TOTAL 0.6 mg/dL (0.2-1.2); CALCIUM 9.9 mg/dL (8.4-10.2); CREATININE, SERUM 0.84 mg/dL (0.72-1.25); POTASSIUM 4.8 mmol/L (3.5-5.1); TOTAL PROTEIN 7.5 g/dL (6.5-8.1)
[2024-05-30] MEDS: SODIUM CHLORIDE 0.9% 1000ML 1,000 ML IV STA (19:40)
[2024-05-30] MEDS ORDERED: AMOX TR-K CLV1 EAC2 PO (21:13)
[2024-05-31 00:29] VITALS: BP 119/58; PULSE 65; RESP 18; TEMP 98.6; O2SAT 98
== END 2024-05-30 21:19 | disposition home or self-care (01) ==
LOC: ER 17:26
DX: L03.115 Cellulitis of right lower limb (principal); L98.498 Non-pressure chronic ulcer of skin of other sites with other specified severity; I10 Essential (primary) hypertension; E11.65 Type 2 diabetes mellitus with hyperglycemia; E78.5 Hyperlipidemia, unspecified; R20.0 Anesthesia of skin
CPT/HCPCS: 36415; 73630; 80053; 85025; 99284; J2543; J7030

== ENCOUNTER 2024-06-03 16:38 | Inpatient (IN) | payer MEDICARE ==
[~2024-06-03] VITALS: Ht 175.3 cm; Wt 79.4 kg
[~2024-06-03 16:38] MED LIST changes: +AMOX TR-K CLV1 EAC2 PO
[2024-06-03 16:56] VITALS: RESP 16; TEMP 97.9
[2024-06-03 17:22] LABS: BASOPHILS % 0.4 % (0.0-1.0); EOSINOPHILS # (AUTO) 0.1 (0.0-0.4); EOSINOPHILS % 1.6 % (0.0-6.0); HEMATOCRIT 42.9 % (38.2-49.6); HEMOGLOBIN 13.8 g/dL (14.0-18.0); LYMPHOCYTES % 28.7 % (18.0-39.1); MEAN CORPUSCULAR HEMOGLOBIN 28.9 pg (28-32); MEAN CORPUSCULAR HGB CONC 32.2 g/dL (31-35); MEAN CORPUSCULAR VOLUME 89.7 fL (81-99); MONOCYTES # (AUTO) 0.6 (0.2-0.8); MONOCYTES % 9.1 % (4.4-11.3); NEUTROPHILS # (AUTO) 4.1 (2.1-6.9); NEUTROPHILS % 59.9 % (38.7-80.0); PLATELET COUNT 248 x10e3/uL (140-360); RED BLOOD COUNT 4.78 x10e6/uL (4.3-5.7); RED CELL DISTRIBUTION WIDTH 12.5 % (11.7-14.4); WHITE BLOOD COUNT 6.82 x10e3/uL (4.8-10.8)
[2024-06-03 17:46] LABS: ALBUMIN 2.9 g/dL (3.5-5.0); ALBUMIN/GLOBULIN RATIO 0.7 (0.8-2.0); ANION GAP 14.1 mmol/L (8-16); BILIRUBIN,TOTAL 0.3 mg/dL (0.2-1.2); CALCIUM 9.4 mg/dL (8.4-10.2); CREATININE, SERUM 0.76 mg/dL (0.72-1.25); POTASSIUM 4.1 mmol/L (3.5-5.1); TOTAL PROTEIN 6.8 g/dL (6.5-8.1)
[2024-06-03] MEDS: CEFEPIME 2 GM in SODIUM CHLORIDE 0.9% 100 ML IV SCH (18:24)
[2024-06-03] MEDS: Vancomycin IV 1 GM in SODIUM CHLORIDE 0.9% 250ML 250 ML IV SCH (18:51)
[2024-06-03 20:15] VITALS: PULSE 82
[2024-06-03] MEDS ORDERED: SODIUM CHLORIDE FLUSH 10 ML SYR INJ PRN (20:45)
[2024-06-03] MEDS ORDERED: ONDANSETRON HCL INJ 2MG/ML 2ML 2 MG/ML VIAL IV PRN (20:45)
[2024-06-03 21:00] VITALS: BP 130/98; PULSE 70; RESP 18; TEMP 97.8; O2SAT 97
[2024-06-03 22:50] VITALS: BP 130/98; PULSE 70; RESP 18; TEMP 97.8; O2SAT 97
[2024-06-04] VITALS (8 sets, daily range): BP systolic 112–147; BP diastolic 62–97; PULSE 49–76; RESP 16–21; TEMP 96.6–98.6; O2SAT 95–99
[2024-06-04] MEDS ORDERED: GLIMEPIRIDE2 MG PO (00:38)
[2024-06-04] MEDS ORDERED: MYRBETRIQ8 MG/1 ML PO (00:38)
[2024-06-04] MEDS ORDERED: ELIQUIS5 MG PO (00:38)
[2024-06-04] MEDS ORDERED: TRIAMTERENE-HCTZ1 EA PO (00:38)
[2024-06-04] MEDS ORDERED: TRADJENTA5 MG PO (00:38)
[2024-06-04] MEDS ORDERED: MYRBETRIQ50 MG PO (00:38)
[2024-06-04 06:34] LABS: BASOPHILS % 0.5 % (0.0-1.0); EOSINOPHILS # (AUTO) 0.1 (0.0-0.4); EOSINOPHILS % 1.9 % (0.0-6.0); HEMATOCRIT 42.8 % (38.2-49.6); HEMOGLOBIN 13.3 g/dL (14.0-18.0); LYMPHOCYTES # (AUTO) 1.7 (1.0-3.2); LYMPHOCYTES % 29.5 % (18.0-39.1); MEAN CORPUSCULAR HEMOGLOBIN 28.5 pg (28-32); MEAN CORPUSCULAR HGB CONC 31.1 g/dL (31-35); MEAN CORPUSCULAR VOLUME 91.6 fL (81-99); MONOCYTES # (AUTO) 0.5 (0.2-0.8); NEUTROPHILS # (AUTO) 3.5 (2.1-6.9); NEUTROPHILS % 58.8 % (38.7-80.0); PLATELET COUNT 225 x10e3/uL (140-360); RED BLOOD COUNT 4.67 x10e6/uL (4.3-5.7); RED CELL DISTRIBUTION WIDTH 12.5 % (11.7-14.4); WHITE BLOOD COUNT 5.89 x10e3/uL (4.8-10.8)
[2024-06-04 07:04] LABS: ALBUMIN 2.5 g/dL (3.5-5.0); ALBUMIN/GLOBULIN RATIO 0.7 (0.8-2.0); ANION GAP 11.3 mmol/L (8-16); BILIRUBIN,TOTAL 0.3 mg/dL (0.2-1.2); CALCIUM 8.8 mg/dL (8.4-10.2); CREATININE, SERUM 0.73 mg/dL (0.72-1.25); POTASSIUM 4.3 mmol/L (3.5-5.1); TOTAL PROTEIN 6.1 g/dL (6.5-8.1)
[2024-06-04] MEDS: SODIUM CHLORIDE 0.9% 500ML 500 ML ONE (09:32)
[2024-06-04] MEDS ORDERED: DEXTROSE 50% SYRINGE 50 ML IV PRN (19:00)
[2024-06-04] MEDS: INSULIN LISPRO 100 UNIT/1 ML 3ML VIAL SQ SCH (22:12)
[2024-06-05 03:27] VITALS: BP 133/60; PULSE 70; RESP 16; TEMP 97.4; O2SAT 99
[2024-06-05 06:21] LABS: BASOPHILS % 0.4 % (0.0-1.0); EOSINOPHILS # (AUTO) 0.1 (0.0-0.4); EOSINOPHILS % 2.4 % (0.0-6.0); HEMATOCRIT 42.1 % (38.2-49.6); HEMOGLOBIN 13.5 g/dL (14.0-18.0); LYMPHOCYTES # (AUTO) 1.7 (1.0-3.2); LYMPHOCYTES % 31.8 % (18.0-39.1); MEAN CORPUSCULAR HEMOGLOBIN 28.9 pg (28-32); MEAN CORPUSCULAR HGB CONC 32.1 g/dL (31-35); MEAN CORPUSCULAR VOLUME 90.1 fL (81-99); MONOCYTES # (AUTO) 0.5 (0.2-0.8); MONOCYTES % 8.8 % (4.4-11.3); NEUTROPHILS # (AUTO) 3.1 (2.1-6.9); NEUTROPHILS % 56.2 % (38.7-80.0); PLATELET COUNT 214 x10e3/uL (140-360); RED BLOOD COUNT 4.67 x10e6/uL (4.3-5.7); RED CELL DISTRIBUTION WIDTH 12.7 % (11.7-14.4); WHITE BLOOD COUNT 5.48 x10e3/uL (4.8-10.8)
[2024-06-05 06:50] LABS: ANION GAP 11.7 mmol/L (8-16); CALCIUM 9.2 mg/dL (8.4-10.2); CREATININE, SERUM 0.74 mg/dL (0.72-1.25); POTASSIUM 4.7 mmol/L (3.5-5.1)
[2024-06-05 08:55] VITALS: BP 136/84; PULSE 71; RESP 19; TEMP 98.7; O2SAT 96
[2024-06-05] MEDS: SIMVASTATIN 20 MG TAB PO SCH (09:13)
[2024-06-05 09:46] VITALS: BP 136/84; PULSE 71; RESP 19; TEMP 98.2; O2SAT 96
[2024-06-05 12:23] VITALS: BP 131/73; PULSE 43; RESP 19; TEMP 98.2; O2SAT 95
[2024-06-05] MEDS: CEFTRIAXONE 2 GM in SODIUM CHLORIDE 0.9% 100 ML IV SCH (16:44)
[2024-06-05 16:49] VITALS: BP 130/61; PULSE 42; RESP 19; TEMP 98.8; O2SAT 99
[2024-06-05 20:00] VITALS: BP 130/61; PULSE 42; RESP 19; TEMP 98.8; O2SAT 99
[2024-06-06] VITALS: BP 164/73; PULSE 64; RESP 20; TEMP 97.3; O2SAT 97
[2024-06-06 06:31] LABS: BASOPHILS % 0.6 % (0.0-1.0); EOSINOPHILS # (AUTO) 0.1 (0.0-0.4); EOSINOPHILS % 2.5 % (0.0-6.0); HEMATOCRIT 42.7 % (38.2-49.6); HEMOGLOBIN 13.4 g/dL (14.0-18.0); LYMPHOCYTES # (AUTO) 1.3 (1.0-3.2); LYMPHOCYTES % 27.4 % (18.0-39.1); MEAN CORPUSCULAR HEMOGLOBIN 28.7 pg (28-32); MEAN CORPUSCULAR HGB CONC 31.4 g/dL (31-35); MEAN CORPUSCULAR VOLUME 91.4 fL (81-99); MONOCYTES # (AUTO) 0.4 (0.2-0.8); MONOCYTES % 8.9 % (4.4-11.3); NEUTROPHILS # (AUTO) 2.8 (2.1-6.9); NEUTROPHILS % 60.4 % (38.7-80.0); PLATELET COUNT 205 x10e3/uL (140-360); RED BLOOD COUNT 4.67 x10e6/uL (4.3-5.7); RED CELL DISTRIBUTION WIDTH 12.6 % (11.7-14.4); WHITE BLOOD COUNT 4.71 x10e3/uL (4.8-10.8)
[2024-06-06 06:49] LABS: ANION GAP 14.2 mmol/L (8-16); CALCIUM 9.2 mg/dL (8.4-10.2); CREATININE, SERUM 0.76 mg/dL (0.72-1.25); POTASSIUM 4.2 mmol/L (3.5-5.1)
[2024-06-06] MEDS ORDERED: DOXYCYCLINE HY100 MG PO (08:46)
[2024-06-06] MEDS ORDERED: CIPRO500 MG PO (08:46)
[2024-06-06] MEDS: NON-FORMULARY MEDICATION (Mirabegron (Myrbetriq) 50 MG) PO SCH (09:00)
[2024-06-06] MEDS ORDERED: Vancomycin IV 1 GM in SODIUM CHLORIDE 0.9% 250ML 250 ML IV SCH (10:00)
[2024-06-06] MEDS: DOXYCYCLINE HYCLATE TABLET 100 MG TAB PO SCH (10:26)
[2024-06-06] MEDS: TRIAMTERENE/HCTZ 37.5-25 MG TAB PO SCH (10:26)
[2024-06-06] MEDS: CIPROFLOXACIN 500 MG TAB PO SCH (10:27)
[2024-06-06 11:49] VITALS: BP 147/90; PULSE 76; RESP 18; TEMP 98.3; O2SAT 95
== END 2024-06-06 13:05 | disposition home or self-care (01) | DRG 638 ==
LOC: ER 17:05 → ERHOLD 20:41 → MED/SURG3 21:37 → OBSVTOIN 06-05 08:39
PROVIDERS: ADMIT Internal Medicine; ATTEND Internal Medicine
DX: E11.621 Type 2 diabetes mellitus with foot ulcer (principal); L97.418 Non-pressure chronic ulcer of right heel and midfoot with other specified severity; L97.528 Non-pressure chronic ulcer of other part of left foot with other specified severity; L97.518 Non-pressure chronic ulcer of other part of right foot with other specified severity; G71.11 Myotonic muscular dystrophy; E11.51 Type 2 diabetes mellitus with diabetic peripheral angiopathy without gangrene; I10 Essential (primary) hypertension; E78.5 Hyperlipidemia, unspecified; Z79.4 Long term (current) use of insulin; Z79.01 Long term (current) use of anticoagulants; Z79.52 Long term (current) use of systemic steroids; Z79.84 Long term (current) use of oral hypoglycemic drugs; Z90.49 Acquired absence of other specified parts of digestive tract; Z88.8 Allergy status to other drugs, medicaments and biological substances
CPT/HCPCS: 36415; 80048; 80053; 80202; 82948; 83036; 85025; 86140; 87040; 93925; 93970; 99252; 99284; G0378; J0692; J0696; J7040; J7050

== ENCOUNTER 2024-06-14 11:01 | Outpatient (RCR) | payer MEDICARE ==
[~2024-06-14 11:01] MED LIST changes: +CIPRO500 MG PO; +DOXYCYCLINE HY100 MG PO; +ELIQUIS5 MG PO; +GLIMEPIRIDE2 MG PO; +LIDOCAINE VISC 2% SOLN 15 ML UDC ONE; +MYRBETRIQ50 MG PO; +MYRBETRIQ8 MG/1 ML PO; +TRADJENTA5 MG PO; +TRIAMTERENE-HCTZ1 EA PO
== END 2024-06-17 | disposition still patient (30) ==
LOC: WCC 11:01
PROVIDERS: ATTEND Podiatrist Foot & Ankle Surgery
DX: E11.621 Type 2 diabetes mellitus with foot ulcer (principal); L97.419 Non-pressure chronic ulcer of right heel and midfoot with unspecified severity; L97.429 Non-pressure chronic ulcer of left heel and midfoot with unspecified severity; R60.0 Localized edema
CPT/HCPCS: 36415; 82948; 87071; 87075; 87186; 87205

== ENCOUNTER 2024-07-12 12:11 | Outpatient (RCR) | payer MEDICARE ==
[~2024-07-12 12:11] MED LIST changes: +BALSAM PERU/CASTOR OIL 28.35 GM OINT...G. TP ONE; +COLLAGENASE OINTMENT 30 GM TUBE ONE; -LIDOCAINE VISC 2% SOLN 15 ML UDC ONE
== END 2024-07-17 ==
LOC: WCC 12:11
PROVIDERS: ATTEND Podiatrist Foot & Ankle Surgery
DX: E11.621 Type 2 diabetes mellitus with foot ulcer (principal); L97.419 Non-pressure chronic ulcer of right heel and midfoot with unspecified severity; L97.418 Non-pressure chronic ulcer of right heel and midfoot with other specified severity; L97.428 Non-pressure chronic ulcer of left heel and midfoot with other specified severity

== ENCOUNTER 2024-08-21 13:00 | Inpatient (IN) | payer MEDICARE ==
[~2024-08-21] VITALS: Ht 175.3 cm; Wt 79.4 kg
[2024-08-21] VITALS (13 sets, daily range): BP systolic 119–164; BP diastolic 74–105; PULSE 43–88; RESP 10–18; TEMP 96.9–98; O2SAT 93–100
[~2024-08-21 13:00] MED LIST changes: -BALSAM PERU/CASTOR OIL 28.35 GM OINT...G. TP ONE; -COLLAGENASE OINTMENT 30 GM TUBE ONE
[2024-08-21 14:08] LABS: BASOPHILS % 0.6 % (0.0-1.0); EOSINOPHILS # (AUTO) 0.1 (0.0-0.4); EOSINOPHILS % 1.5 % (0.0-6.0); HEMATOCRIT 44.9 % (38.2-49.6); LYMPHOCYTES # (AUTO) 2.2 (1.0-3.2); LYMPHOCYTES % 33.1 % (18.0-39.1); MEAN CORPUSCULAR HEMOGLOBIN 27.9 pg (28-32); MEAN CORPUSCULAR HGB CONC 31.2 g/dL (31-35); MEAN CORPUSCULAR VOLUME 89.4 fL (81-99); MONOCYTES # (AUTO) 0.5 (0.2-0.8); NEUTROPHILS # (AUTO) 3.8 (2.1-6.9); NEUTROPHILS % 57.5 % (38.7-80.0); PLATELET COUNT 237 x10e3/uL (140-360); RED BLOOD COUNT 5.02 x10e6/uL (4.3-5.7); WHITE BLOOD COUNT 6.68 x10e3/uL (4.8-10.8)
[2024-08-21 14:23] LABS: ALBUMIN 3.2 g/dL (3.5-5.0); ALBUMIN/GLOBULIN RATIO 0.8 (0.8-2.0); ANION GAP 15.7 mmol/L (8-16); BILIRUBIN,TOTAL 0.6 mg/dL (0.2-1.2); CALCIUM 9.4 mg/dL (8.4-10.2); CREATININE, SERUM 0.89 mg/dL (0.72-1.25); MAGNESIUM 1.7 MG/DL (1.3-2.1); POTASSIUM 4.7 mmol/L (3.5-5.1); TOTAL PROTEIN 7.2 g/dL (6.5-8.1)
[2024-08-21 14:26] LABS: INR 1.25; PARTIAL THROMBOPLASTIN TIME 26.9 seconds (23.8-35.5); PROTHROMBIN TIME 16.8 seconds (11.9-14.5)
[2024-08-21 14:43] LABS: THYROID STIMULATING HORMONE 1.098 uIU/mL (0.350-4.940); TROPONIN I 0.008 ng/mL (0-0.300)
[2024-08-21] MEDS ORDERED: DEXTROSE 50% SYRINGE 50 ML IV PRN (15:45)
[2024-08-21] MEDS: INSULIN LISPRO 100 UNIT/1 ML 3ML VIAL SQ SCH (16:30)
[2024-08-22] VITALS: BP 137/84; PULSE 73; RESP 18; TEMP 97.9; O2SAT 98
[2024-08-22 03:33] VITALS: BP 137/84; PULSE 73; RESP 18; TEMP 98.1; O2SAT 100
[2024-08-22 04:00] VITALS: BP 134/79; PULSE 73; RESP 18; TEMP 97.9; O2SAT 98
[2024-08-22 06:25] LABS: BASOPHILS % 0.6 % (0.0-1.0); EOSINOPHILS # (AUTO) 0.1 (0.0-0.4); EOSINOPHILS % 1.9 % (0.0-6.0); HEMATOCRIT 44.1 % (38.2-49.6); HEMOGLOBIN 13.5 g/dL (14.0-18.0); LYMPHOCYTES # (AUTO) 2.1 (1.0-3.2); LYMPHOCYTES % 39.5 % (18.0-39.1); MEAN CORPUSCULAR HEMOGLOBIN 27.7 pg (28-32); MEAN CORPUSCULAR HGB CONC 30.6 g/dL (31-35); MEAN CORPUSCULAR VOLUME 90.6 fL (81-99); MONOCYTES # (AUTO) 0.4 (0.2-0.8); MONOCYTES % 8.3 % (4.4-11.3); NEUTROPHILS # (AUTO) 2.6 (2.1-6.9); NEUTROPHILS % 49.3 % (38.7-80.0); PLATELET COUNT 213 x10e3/uL (140-360); RED BLOOD COUNT 4.87 x10e6/uL (4.3-5.7); RED CELL DISTRIBUTION WIDTH 15.1 % (11.7-14.4); WHITE BLOOD COUNT 5.21 x10e3/uL (4.8-10.8)
[2024-08-22 06:49] LABS: ALBUMIN/GLOBULIN RATIO 0.8 (0.8-2.0); BILIRUBIN,TOTAL 0.6 mg/dL (0.2-1.2); CALCIUM 9.1 mg/dL (8.4-10.2); CHOL/HDL RATIO 4.1 (3.9-4.7); CREATININE, SERUM 0.72 mg/dL (0.72-1.25); TOTAL PROTEIN 6.7 g/dL (6.5-8.1)
[2024-08-22 07:23] LABS: TROPONIN I 0.311 ng/mL (0-0.300)
[2024-08-22 07:52] VITALS: BP 137/84; RESP 18; TEMP 98.1; O2SAT 100
[2024-08-22] MEDS: INSULIN GLARGINE 100 UNITS/ML VIAL SQ SCH (09:00)
[2024-08-22] MEDS: SIMVASTATIN 20 MG TAB PO SCH (09:32)
[2024-08-22] MEDS: ACETAMINOPHEN 325 MG TAB PO PRN (09:56)
[2024-08-22 12:00] VITALS: BP 128/88; PULSE 79; RESP 19; TEMP 97.8; O2SAT 100
[2024-08-22] MEDS: SODIUM CHLORIDE 0.9% 500ML 500 ML ONE (15:12)
[2024-08-22] MEDS: Vancomycin IV 1 GM VIAL ONE (15:12)
[2024-08-22] MEDS: SODIUM CHLORIDE 0.9% 500ML 500 ML IV ONE (15:12)
[2024-08-22] MEDS: GENTAMICIN SULFATE 40 MG/ML 2 ML VIAL ONE (15:12)
[2024-08-22] MEDS: IOPAMIDOL 610MG/1ML 300 MG/ML VIAL IV ONE (15:13)
[2024-08-22] MEDS: LIDOCAINE HCL 2% LOCAL 20 ML VIAL ONE (15:13)
[2024-08-22] MEDS: SODIUM BICARBONATE 8.4% SYRING 50 ML ONE (15:13)
[2024-08-22] MEDS: SODIUM CHLORIDE 0.9% 250ML 250 ML ONE (15:14)
[2024-08-22] MEDS: SODIUM CHLORIDE 0.9% 1000ML 2,000 ML ONE (15:14)
[2024-08-22 15:32] LABS: TROPONIN I 0.455 ng/mL (0-0.300)
[2024-08-22 16:03] VITALS: BP 138/72; PULSE 77; RESP 19; TEMP 97.7; O2SAT 100
[2024-08-22] MEDS ORDERED: TOPROL XL25 MG PO (18:36)
[2024-08-22] MEDS ORDERED: LISINOPRIL2.5 MG PO (18:36)
[2024-08-22] MEDS ORDERED: DOXYCYCLINE HY100 MG PO (18:36)
[2024-08-23] MEDS ORDERED: DOXYCYCLINE HYCLATE TABLET 100 MG TAB PO SCH (09:00)
[2024-08-23] MEDS ORDERED: METOPROLOL SUCCINATE 25 MG TAB XL PO SCH (09:00)
[2024-08-23] MEDS ORDERED: LISINOPRIL 2.5 MG TAB PO SCH (09:00)
== END 2024-08-22 21:05 | disposition home or self-care (01) | DRG 244 ==
LOC: ER 13:59 → ERHOLD 14:41 → MED/SURG2 19:02
PROVIDERS: ADMIT Internal Medicine; ATTEND Internal Medicine
PROC: 02H63JZ Insertion of Pacemaker Lead into Right Atrium, Percutaneous Approach (ICD-10-PCS; principal; 2024-08-21)
PROC: 0JH606Z Insertion of Pacemaker, Dual Chamber into Chest Subcutaneous Tissue and Fascia, Open Approach (ICD-10-PCS; 2024-08-21)
PROC: 02HK3JZ Insertion of Pacemaker Lead into Right Ventricle, Percutaneous Approach (ICD-10-PCS; 2024-08-21)
DX: I44.2 Atrioventricular block, complete (principal); I44.1 Atrioventricular block, second degree; G71.11 Myotonic muscular dystrophy; E11.51 Type 2 diabetes mellitus with diabetic peripheral angiopathy without gangrene; E11.65 Type 2 diabetes mellitus with hyperglycemia; I10 Essential (primary) hypertension; E78.5 Hyperlipidemia, unspecified; R00.1 Bradycardia, unspecified; Z79.01 Long term (current) use of anticoagulants; Z79.4 Long term (current) use of insulin; Z79.84 Long term (current) use of oral hypoglycemic drugs; Z90.49 Acquired absence of other specified parts of digestive tract; Z88.8 Allergy status to other drugs, medicaments and biological substances; Z82.8 Family history of other disabilities and chronic diseases leading to disablement, not elsewhere classified
CPT/HCPCS: 33208; 36415; 71045; 80053; 80061; 82550; 82948; 83735; 83880; 84443; 84484; 85025; 85610; 85730; 93005; 93306; 99284; J0690; J1580; J1815; J2003; J7030; J7040; J7050